=== PATIENT | female | born 1970 | race Caucasian/White ===

== ENCOUNTER 2017-05-01 12:06 | Emergency (ER) | payer MEDICAID, OTHER ==
[2017-05-01] MEDS ORDERED: NITROGLYCERIN 2% OINTMENT 1 GM PACKET TP ONE (12:43)
--- NOTE | 2017-05-01 12:43 | ER Document Report ---
ED Medical Screen (RME) - General Chief Complaint: Chest Pain Stated Complaint: ARM NUMBNESS WITH PAIN Time Seen by Provider: 05/01/17 12:38 Mode of Arrival: Wheelchair Information source: Patient TRAVEL OUTSIDE OF THE [place] IN LAST 30 DAYS: No - HPI Patient complains to provider of: CP Onset: This morning - Pt woke up earlier this am with SSCP (pressure) which radiated into her neck and down L arm. Has not taken ASA today - Related Data Allergies/Adverse Reactions: No Known Allergies Allergy (Unverified 05/01/17 12:16) Past Medical History - Social History Chew tobacco use (# tins/day): No Frequency of alcohol use: None Drug Abuse: None Renal/ Medical History: Denies: Hx Peritoneal Dialysis - Immunizations Hx Diphtheria, Pertussis, Tetanus Vaccination: Yes Physical Exam - Vital signs Vitals: Temp Pulse Resp BP Pulse Ox 98.4 F 120 H 24 H 154/94 H 99 05/01/17 12:14 05/01/17 12:14 05/01/17 12:14 05/01/17 12:14 05/01/17 12:14 Course - Vital Signs Vital signs: Temp Pulse Resp BP Pulse Ox 98.4 F 120 H 24 H 154/94 H 99 05/01/17 12:14 05/01/17 12:14 05/01/17 12:14 05/01/17 12:14 05/01/17 12:14
[2017-05-01 13:23] LABS: ABSOLUTE BASOPHILS # (AUTO) 0.1 10^3/uL (0.0-0.2); ABSOLUTE LYMPHOCYTES (AUTO) 1.5 10^3/uL (0.5-4.7); ABSOLUTE MONOCYTES (AUTO) 0.6 10^3/uL (0.1-1.4); ABSOLUTE NEUT (AUTO) 7.1 10^3/uL (1.7-8.2); BASOPHILS % (AUTO) 0.7 % (0-2); EOSINOPHILS % (AUTO) 0.3 % (0-6); HEMATOCRIT 44.6 % (36.0-47.0); HEMOGLOBIN 15.2 g/dL (12.0-15.5); MEAN CORPUSCULAR HEMOGLOBIN 31.2 pg (27.0-33.4); MEAN CORPUSCULAR HGB CONC 34.1 g/dL (32.0-36.0); MEAN CORPUSCULAR VOLUME 92 fl (80-97); MONOCYTES % (AUTO) 6.6 % (3-13); RED BLOOD COUNT 4.87 10^6/uL (3.72-5.28); RED CELL DISTRIBUTION WIDTH 12.8 % (11.5-14.0); SEGMENTED NEUTROPHILS % (AUTO) 76.4 % (42-78); WHITE BLOOD COUNT 9.3 10^3/uL (4.0-10.5)
--- NOTE | 2017-05-01 13:24 | RADIOLOGY REPORT (SQ) ---
EXAM DESCRIPTION: CHEST PA/LAT COMPLETED DATE/TIME: 05/01/2017 1:10 pm REASON FOR STUDY: CP COMPARISON: None. EXAM PARAMETERS: NUMBER OF VIEWS: two views TECHNIQUE: Digital Frontal and Lateral radiographic views of the chest acquired. RADIATION DOSE: NA LIMITATIONS: none FINDINGS: LUNGS AND PLEURA: No opacities, masses or pneumothorax. No pleural effusion. MEDIASTINUM AND HILAR STRUCTURES: No masses or contour abnormalities. HEART AND VASCULAR STRUCTURES: Heart normal size. No evidence for failure. BONES: No acute findings. HARDWARE: Clips right upper quadrant post cholecystectomy OTHER: No other significant finding. IMPRESSION: NO SIGNIFICANT RADIOGRAPHIC FINDING IN THE CHEST. TECHNICAL DOCUMENTATION: JOB ID: [id number] [employer]- All Rights Reserved
--- NOTE | 2017-05-01 13:28 | EKG REPORT ---
SEVERITY:- BORDERLINE ECG - SINUS TACHYCARDIA PROBABLE LEFT ATRIAL ABNORMALITY : Confirmed by: Maurizio Cabrera 01-May-2017 13:26:46
[2017-05-01 13:40] LABS: ALANINE AMINOTRANSFERASE 26 U/L (9-52); ALBUMIN 4.7 g/dL (3.5-5.0); ALKALINE PHOSPHATASE 69 U/L (38-126); ANION GAP 15 (5-19); ASPARTATE AMINO TRANSFERASE 22 U/L (14-36); BILIRUBIN,DIRECT 0.3 mg/dL (0.0-0.4); BILIRUBIN,TOTAL 0.6 mg/dL (0.2-1.3); BLOOD UREA NITROGEN 17 mg/dL (7-20); CARBON DIOXIDE 22 mmol/L (22-30); CHLORIDE 106 mmol/L (98-107); CREATINE KINASE 45 U/L (30-135); CREATININE RESULT 0.79 mg/dL (0.52-1.25); GLUCOSE 114 mg/dL (75-110); POTASSIUM 4.8 mmol/L (3.6-5.0); SODIUM 142.7 mmol/L (137-145); TOTAL PROTEIN 8.5 g/dL (6.3-8.2)
[2017-05-01] MEDS ORDERED: ASPIRIN 81 MG TABLET, CHEWABLE ONE (13:46)
[2017-05-01 13:55] LABS: CREATINE KINASE MB < 0.22 ng/mL (<4.55); TROPONIN I < 0.012 ng/mL
[2017-05-01] MEDS ORDERED: CLONAZEPAM 1 MG TABLET PO ONE (14:21)
--- NOTE | 2017-05-01 14:58 | ER Document Report ---
ED General - General Chief Complaint: Chest Pain Stated Complaint: ARM NUMBNESS WITH PAIN Time Seen by Provider: 05/01/17 12:38 Mode of Arrival: Wheelchair Information source: Patient, Relative Notes: 46-year-old female history of anxiety who has had multiple previous cardiac evaluations at outlying facilities per presents with complaints of palpitations. Patient notes pain radiates across her arms to her chest associated with shortness of breath. Patient does note that she ran out of her clonazepam and symptoms started since TRAVEL OUTSIDE OF THE [place] IN LAST 30 DAYS: No - HPI Onset: This morning Onset/Duration: Persistent Quality of pain: Achy Severity: Mild Pain Level: 1 Associated symptoms: Chest pain, Shortness of breath Exacerbated by: Denies Relieved by: Denies Similar symptoms previously: Yes Recently seen / treated by doctor: Yes - Related Data Allergies/Adverse Reactions: No Known Allergies Allergy (Unverified 05/01/17 12:16) Past Medical History - General Information source: Patient - Social History Smoking Status: Never Smoker Cigarette use (# per day): No Chew tobacco use (# tins/day): No Smoking Education Provided: No Frequency of alcohol use: None Drug Abuse: None Family History: Reviewed & Not Pertinent Patient has suicidal ideation: No Patient has homicidal ideation: No Renal/ Medical History: Denies: Hx Peritoneal Dialysis - Immunizations Hx Diphtheria, Pertussis, Tetanus Vaccination: Yes Review of Systems - Review of Systems Notes: REVIEW OF SYSTEMS: CONSTITUTIONAL : Denies fever, chills, or sweats. Denies recent illness. EENT: Denies eye, ear, throat, or mouth pain or symptoms. Denies nasal or sinus congestion or discharge. Denies throat, tongue, or mouth swelling or difficulty swallowing. CARDIOVASCULAR: Admits to chest pain GASTROINTESTINAL: Denies abdominal pain or distention. Denies nausea, vomiting , or diarrhea. Denies blood in vomitus, stools, or per rectum. Denies black, tarry stools. Denies constipation. GENITOURINARY: Denies difficulty urinating, painful urination, burning, frequency, blood in urine, or discharge. FEMALE GENITOURINARY: Denies vaginal bleeding, heavy or abnormal periods, irregular periods. Denies vaginal discharge or odor. MUSCULOSKELETAL: Denies back or neck pain or stiffness. Denies joint pain or swelling. SKIN: Denies rash, lesions or sores. HEMATOLOGIC : Denies easy bruising or bleeding. LYMPHATIC: Denies swollen, enlarged glands. NEUROLOGICAL: Denies confusion or altered mental status. Denies passing out or loss of consciousness. Denies dizziness or lightheadedness. Denies headache. Denies weakness or paralysis or loss of use of either side. Denies problems with gait or speech. Denies sensory loss, numbness, or tingling. Denies seizures. PSYCHIATRIC: Admits to panic attacks ALL OTHER SYSTEMS REVIEWED AND NEGATIVE. Dictation was performed using [employer] voice recognition software PHYSICAL EXAMINATION: GENERAL: Well-appearing, well-nourished and in no acute distress. HEAD: Atraumatic, normocephalic. EYES: Pupils equal round and reactive to light, extraocular movements intact, conjunctiva are normal. ENT: Nares patent, oropharynx clear without exudates. Moist mucous membranes. NECK: Normal range of motion, supple without lymphadenopathy LUNGS: Patient breathing 18 times a minute prior to my arrival breath sounds clear to auscultation bilaterally and equal. No wheezes rales or rhonchi. HEART: Regular rate and rhythm without murmurs patient's heart rate is in the low 90s prior to my arrival however when I walk in heart rate goes up to the 130s ABDOMEN: Soft, nontender, nondistended abdomen. No guarding, no rebound. No masses appreciated. Female : deferred Musculoskeletal: Normal range of motion, no pitting or edema. No cyanosis. NEUROLOGICAL: Cranial nerves grossly intact. Normal speech, normal gait. Normal sensory, motor exams PSYCH: Normal mood, normal affect. SKIN: Warm, Dry, normal turgor, no rashes or lesions noted. Physical Exam - Vital signs Vitals: Temp Pulse Resp BP Pulse Ox 98.4 F 120 H 24 H 154/94 H 99 05/01/17 12:14 05/01/17 12:14 05/01/17 12:14 05/01/17 12:14 05/01/17 12:14 Course - Re-evaluation Re-evalutation: 05/01/17 14:58 Patient has probable panic attack given extensive history lack of medication and current presentation, a CTA has been ordered nonetheless given that she was tachycardic and tachypneic on arrival, sats have been 100% 05/01/17 15:51 cta was negative, pt otherwise looks well, will dc home as anxiety, otherwise no life threatening issues noted After performing a Medical Screening Examination, I estimate there is LOW risk for RUPTURED ESOPHAGUS, PNEUMOTHORAX, PULMONARY EMBOLISM, ACUTE CORONARY SYNDROME, OR THORACIC AORTIC DISSECTION, thus I consider the discharge disposition reasonable. I have reevaluated this patient multiple times and no significant life threatening changes are noted. The patient and I have discussed the diagnosis and risks, and we agree with discharging home with close follow-up. We also discussed returning to the Emergency Department immediately if new or worsening symptoms occur. We have discussed the symptoms which are most concerning (e.g., bloody sputum, worsening pain or shortness of breath) that necessitate immediate return. - Vital Signs Vital signs: Temp Pulse Resp BP Pulse Ox 98.4 F 135 H 31 H 151/88 H 100 05/01/17 12:14 05/01/17 13:25 05/01/17 15:16 05/01/17 15:16 05/01/17 15:16 - Laboratory Result Diagrams: 05/01/17 12:50 05/01/17 12:50 Laboratory results interpreted by me: 05/01/17 12:50 Glucose 114 H Total Protein 8.5 H - Diagnostic Test Radiology reviewed: Image reviewed, Reports reviewed - EKG Interpretation by Ne EKG shows normal: Sinus rhythm, [place], Intervals, QRS Complexes Discharge - Discharge Clinical Impression: Anxiety, Tachycardia Chest pain Qualifiers: Chest pain type: unspecified Qualified Code(s): R07.9 - Chest pain, unspecified Condition: Stable Disposition: HOME, SELF-CARE Instructions: Chest Pain of Unclear Cause ([facility]) Prescriptions: Clonazepam [Klonopin] 1 mg PO Q6 #20 tablet
--- NOTE | 2017-05-01 15:48 | RADIOLOGY REPORT (SQ) ---
EXAM DESCRIPTION: CTA CHEST COMPLETED DATE/TIME: 05/01/2017 3:29 pm REASON FOR STUDY: chest pain COMPARISON: None. TECHNIQUE: CT scan of the chest performed using helical scanning technique with dynamic intravenous contrast injection. Images reviewed with lung, soft tissue and bone windows. Reconstructed coronal and sagittal MPR images reviewed. Additional 3 dimensional post-processing performed to develop Maximal Intensity Projection images (ME P). All images stored on PACS. All CT scanners at this facility use dose modulation, iterative reconstruction, and/or weight based d osing when appropriate to reduce radiation dose to as low as reasonably achievable (ALARA). [facility]: Dose Right [facility]: CareDose [facility]: Dose Right [facility]: Teradose 4D [facility]: [employer] CONTRAST TYPE AND DOSE: 100 mL Isovue 370- low osmolar. RENAL FUNCTION: None required. The patient is less than 50 years old. RADIATION DOSE: 44.11 mGy. LIMITATIONS: None. FINDINGS: LUNGS AND PLEURA: No masses, infiltrates, pneumothorax. No pleural effusions, calcificati ons. AORTA AND GREAT VESSELS: No aneurysm or dissection. HEART: No pericardial effusion. PULMONARY ARTERIES: No emboli visualized in the main pulmonary arteries or the segmental branches. HILAR AND MEDIASTINAL STRUCTURES: No identified masses or abnormal nodes. HARDWARE: None in the chest. UPPER ABDOMEN: Potential fullness in the right renal collecting system, incomplete evaluation. THYROID AND OTHER SOFT TISSUES: No masses. No adenopathy. BONES: No acute or significant finding. 3D MIPS: Confirm above findings. OTHER: No other significant finding. IMPRESSION: 1. Negative CTA chest. Clear lungs with normal vessels. 2. Incompletely evaluated fu llness in the right renal collecting system. If the patient has hematuria and concern for renal obst ruction, consider renal ultrasound. TECHNICAL DOCUMENTATION: JOB ID: [id number] Quality ID # [id number]: Final reports with documentation of one or more dose reduction techniques (e.g., Au tomated exposure control, adjustment of the mA and/or kV according to patient size, use of iterative reconstruction technique) 2010 [employer]- All Rights Reserved
[2017-05-01 16:03] VITALS: BP 122/83
== END 2017-05-01 16:15 | disposition home or self-care (01) ==
LOC: ER 12:06
DX: F41.9 Anxiety disorder, unspecified (principal); R00.0 Tachycardia, unspecified; R07.9 Chest pain, unspecified; R20.0 Anesthesia of skin
CPT/HCPCS: 93005; 99285; 36415; 82553; 82550; 85025; 80053; 84484; 71020; 71275; 93010; J3490 ×2

== ENCOUNTER 2017-06-21 19:28 | Emergency (ER) | payer MEDICAID, OTHER ==
[2017-06-21 20:12] LABS: ABSOLUTE BASOPHILS # (AUTO) 0.1 10^3/uL (0.0-0.2); ABSOLUTE EOSINOPHILS # (AUTO) 0.4 10^3/uL (0.0-0.6); ABSOLUTE MONOCYTES (AUTO) 0.8 10^3/uL (0.1-1.4); BASOPHILS % (AUTO) 0.6 % (0-2); HEMATOCRIT 31.1 % (36.0-47.0); HEMOGLOBIN 10.8 g/dL (12.0-15.5); HGB HCT DIFFERENCE 1.3; LYMPHOCYTES % (AUTO) 10.2 % (13-45); MEAN CORPUSCULAR HEMOGLOBIN 31.6 pg (27.0-33.4); MEAN CORPUSCULAR HGB CONC 34.8 g/dL (32.0-36.0); MEAN CORPUSCULAR VOLUME 91 fl (80-97); MONOCYTES % (AUTO) 7.6 % (3-13); RED BLOOD COUNT 3.42 10^6/uL (3.72-5.28); SEGMENTED NEUTROPHILS % (AUTO) 77.6 % (42-78); WHITE BLOOD COUNT 10.3 10^3/uL (4.0-10.5)
[2017-06-21 20:17] LABS: APPEARANCE,URINE CLEAR; BILIRUBIN,URINE NEGATIVE (NEGATIVE); GLUCOSE, URINE NEGATIVE (NEGATIVE); KETONES,URINE NEGATIVE (NEGATIVE); LEUKOCYTE ESTERASE,URINE NEGATIVE (NEGATIVE); NITRITE,URINE NEGATIVE (NEGATIVE); PROTEIN,URINE NEGATIVE (NEGATIVE)
--- NOTE | 2017-06-21 20:49 | ER Document Report ---
ED Medical Screen (RME) - General Chief Complaint: Post op problems Stated Complaint: POST OP COMPLICATIONS Time Seen by Provider: 06/21/17 19:49 Notes: Patient had a recent hysterectomy approximately 1 week ago. She states she has not had a bowel movement since being discharged from the hospital. She states she is having severe diffuse abdominal pain. He states she is unable to eat. She states that she is also had fevers at home. She states she called the hospital with a surgery performed in order to go to the closest emergency department. The surgery was not performed here. TRAVEL OUTSIDE OF THE [place] IN LAST 30 DAYS: No - Related Data Allergies/Adverse Reactions: No Known Allergies Allergy (Unverified 05/01/17 12:16) Past Medical History Renal/ Medical History: Denies: Hx Peritoneal Dialysis - Immunizations Hx Diphtheria, Pertussis, Tetanus Vaccination: Yes Physical Exam - Vital signs Vitals: Temp Pulse Resp BP Pulse Ox 98.7 F 97 16 115/63 96 06/21/17 19:34 06/21/17 19:34 06/21/17 19:34 06/21/17 19:34 06/21/17 19:34 Course - Vital Signs Vital signs: Temp Pulse Resp BP Pulse Ox 98.7 F 97 16 115/63 96 06/21/17 19:34 06/21/17 19:34 06/21/17 19:34 06/21/17 19:34 06/21/17 19:34 - Laboratory Result Diagrams: 06/21/17 19:55 06/21/17 19:55 Laboratory results interpreted by me: 06/21/17 06/21/17 19:55 19:55 RBC 3.42 L Hgb 10.8 L Hct 31.1 L Lymphocytes % 10.2 L Urine Blood MODERATE H Urine Urobilinogen 4.0 H
[2017-06-21 21:42] LABS: ALANINE AMINOTRANSFERASE 39 U/L (9-52); ALBUMIN 3.8 g/dL (3.5-5.0); ALKALINE PHOSPHATASE 65 U/L (38-126); ANION GAP 11 (5-19); ASPARTATE AMINO TRANSFERASE 27 U/L (14-36); BILIRUBIN,DIRECT 0.4 mg/dL (0.0-0.4); BILIRUBIN,TOTAL 1.1 mg/dL (0.2-1.3); BLOOD UREA NITROGEN 10 mg/dL (7-20); CALCIUM 9.2 mg/dL (8.4-10.2); CARBON DIOXIDE 26 mmol/L (22-30); CHLORIDE 102 mmol/L (98-107); GLUCOSE 104 mg/dL (75-110); POTASSIUM 4.4 mmol/L (3.6-5.0); SODIUM 138.7 mmol/L (137-145); TOTAL PROTEIN 6.8 g/dL (6.3-8.2)
--- NOTE | 2017-06-21 23:58 | RADIOLOGY REPORT (SQ) ---
EXAM DESCRIPTION: CT ABD/PELVIS WITH IV ONLY COMPLETED DATE/TIME: 06/21/2017 10:33 pm REASON FOR STUDY: post op HYSTERCTOMY. diffuse pain COMPARISON: None. TECHNIQUE: CT scan of the abdomen and pelvis performed using helical scanning technique with dynamic intravenous contrast injection. No oral contrast. Images reviewed with lung, soft tissue, and bone windows. Reconstructed coronal and sagittal MPR images reviewed. Delayed images for evaluation of the urinary system also acquired. All images stored on PACS. All CT scanners at this facility use dose modulation, iterative reconstruction, and/or weight based d osing when appropriate to reduce radiation dose to as low as reasonably achievable (ALARA). [facility]: Dose Right [facility]: CareDose [facility]: Dose Right [facility]: Teradose 4D [facility]: [employer] CONTRAST TYPE AND DOSE: contrast/concentration: Isovue 370.00 mg/ml; Total Contrast Delivered: 97.0 ml; Total Saline Delivered: 45.0 ml RENAL FUNCTION: Creatinine 0.78 RADIATION DOSE: Up-to-date CT equipment and radiation dose reduction techniques were employed. CTDIv ol: 16.6 - 16.6 mGy. DLP: 1818 mGy-cm.. LIMITATIONS: None. FINDINGS: LOWER CHEST: Tiny bilateral pleural effusions are identified with associated airspace cons olidation most consistent with atelectatic changes. LIVER: Normal size. No masses. No dilated ducts. SPLEEN: Normal size. No focal lesions. PANCREAS: No masses. No significant calcifications. No adjacent inflammation or peripancreatic fluid collections. Pancreatic duct not dilated. GALLBLADDER: Status post cholecystectomy ADRENAL GLANDS: No significant masses or asymmetry. RIGHT KIDNEY AND URETER: No solid masses. No significant calcifications. No hydronephrosis or hyd roureter. LEFT KIDNEY AND URETER: No solid masses. No significant calcifications. No hydronephrosis or hydr oureter. AORTA AND VESSELS: No aneurysm. No dissection. Renal arteries, SMA, celiac without stenosis. RETROPERITONEUM: No retroperitoneal adenopathy, hemorrhage or masses. BOWEL AND PERITONEAL CAVITY: No masses or inflammatory changes. No free fluid or peritoneal masses. APPENDIX: Status post appendectomy PELVIS: There are diffuse edematous or inflammatory changes in the pelvis. A cystic mass is identifi ed in the right pelvis measuring 3.9 cm in diameters. This may be ovarian in etiology. Small amount of air is identified in the bladder. No definite diverticula are identified in the sigmoid colon. The possibility of pelvic inflammatory disease should be considered as a possible etiology. Other et iologies cannot be completely excluded. The possibility of a fistulous track involving the bladder c annot be excluded. Clinical correlation is recommended. ABDOMINAL WALL: No masses. No hernias. BONES: No significant or acute findings. OTHER: No other significant finding. IMPRESSION: There are diffuse edematous or inflammatory changes in the pelvis as noted above. A cys tic mass is identified in the right pelvis measuring 3.9 cm in diameters which may be ovarian in etio logy. A small amount of air is identified in the bladder. Possibility of a fistulous track involvin g the bladder cannot be excluded. The possibility of pelvic inflammatory disease should be considere d as a possible etiology. Clinical correlation is recommended. Other findings as noted above TECHNICAL DOCUMENTATION: JOB ID: [id number] Quality ID # [id number]: Final reports with documentation of one or more dose reduction techniques (e.g., Au tomated exposure control, adjustment of the mA and/or kV according to patient size, use of iterative reconstruction technique) 2010 [employer]- All Rights Reserved
--- NOTE | 2017-06-21 23:58 | ER Document Report ---
ED General - General Chief Complaint: Post op problems Stated Complaint: POST OP COMPLICATIONS Time Seen by Provider: 06/21/17 19:49 Mode of Arrival: Ambulatory Information source: Patient Notes: 46-year-old female presents with complaints of constipation of 5 day duration post hysterectomy. Patient denies any fevers or chills denies any nausea or vomiting. Admits to abdominal cramping Patient also notes that she is very anxious and feels that her whole body is numb. TRAVEL OUTSIDE OF THE [place] IN LAST 30 DAYS: No - HPI Onset: Last week Onset/Duration: Persistent Quality of pain: Cramping Severity: Mild Pain Level: 1 Associated symptoms: Other Exacerbated by: Denies Relieved by: Denies Similar symptoms previously: Yes Recently seen / treated by doctor: Yes - Related Data Allergies/Adverse Reactions: No Known Allergies Allergy (Unverified 05/01/17 12:16) Past Medical History - Social History Smoking Status: Never Smoker Cigarette use (# per day): No Chew tobacco use (# tins/day): No Smoking Education Provided: No Frequency of alcohol use: None Drug Abuse: None Family History: Reviewed & Not Pertinent Renal/ Medical History: Denies: Hx Peritoneal Dialysis Past Surgical History: Reports: Hx Hysterectomy - Immunizations Hx Diphtheria, Pertussis, Tetanus Vaccination: Yes Review of Systems - Review of Systems Notes: REVIEW OF SYSTEMS: CONSTITUTIONAL : Denies fever, chills, or sweats. Denies recent illness. EENT: Denies eye, ear, throat, or mouth pain or symptoms. Denies nasal or sinus congestion or discharge. Denies throat, tongue, or mouth swelling or difficulty swallowing. CARDIOVASCULAR: Denies chest pain. Denies palpitations or racing or irregular heart beat. Denies ankle edema. RESPIRATORY: Denies cough, cold, or chest congestion. Denies shortness of breath, difficulty breathing, or wheezing. GASTROINTESTINAL: admits to constipation GENITOURINARY: Denies difficulty urinating, painful urination, burning, frequency, blood in urine, or discharge. FEMALE GENITOURINARY: Denies vaginal bleeding, heavy or abnormal periods, irregular periods. Denies vaginal discharge or odor. MUSCULOSKELETAL: Denies back or neck pain or stiffness. Denies joint pain or swelling. SKIN: Denies rash, lesions or sores. HEMATOLOGIC : Denies easy bruising or bleeding. LYMPHATIC: Denies swollen, enlarged glands. NEUROLOGICAL: Admits to generalized paresthesia PSYCHIATRIC: Admits to anxiety ALL OTHER SYSTEMS REVIEWED AND NEGATIVE. PHYSICAL EXAMINATION: GENERAL: Well-appearing, well-nourished and in no acute distress. HEAD: Atraumatic, normocephalic. EYES: Pupils equal round and reactive to light, extraocular movements intact, conjunctiva are normal. ENT: Nares patent, oropharynx clear without exudates. Moist mucous membranes. NECK: Normal range of motion, supple without lymphadenopathy LUNGS: Breath sounds clear to auscultation bilaterally and equal. No wheezes rales or rhonchi. HEART: Regular rate and rhythm without murmurs ABDOMEN: Soft, nontender, nondistended abdomen. No guarding, no rebound. No masses appreciated. Patient has 3 healing surgical incisions no secondary signs of infection Female : deferred Musculoskeletal: Normal range of motion, no pitting or edema. No cyanosis. NEUROLOGICAL: Cranial nerves grossly intact. Normal speech, normal gait. Normal sensory, motor exams PSYCH: Normal mood, normal affect. SKIN: Warm, Dry, normal turgor, no rashes or lesions noted. Dictation was performed using [employer] voice recognition software Physical Exam - Vital signs Vitals: Temp Pulse Resp BP Pulse Ox 98.7 F 97 16 115/63 96 06/21/17 19:34 06/21/17 19:34 06/21/17 19:34 06/21/17 19:34 06/21/17 19:34 Course - Re-evaluation Re-evalutation: 06/22/17 00:03 Patient main complaint is constipation and pain secondary to constipation. I have ordered for an enema. Patient is a refuses wishes to leave AGAINST MEDICAL ADVICE. I do not have results of the CT at this time. I will let them go as she is alert oriented and family members are in agreement with her leaving. I have instructed her to go to [facility] where she had her surgery if she has any fevers or any other complaints. She will be given GoLYTELY and magnesium citrate After performing a Medical Screening Examination, I spoke with the patient at length in regards to leaving the hospital against medical advice. I do not believe the patient should leave but the patient is alert oriented x4, understands the risks and benefits of staying and leaving including disability and . Pt understands that she can return at any time for further care and is more than welcome to do so. Pt verbalizes this understanding. 06/22/17 01:29 CT read was noted, I have very low suspicion that there is infective tract, patient is afebrile her main complaint is constipation and she left AGAINST MEDICAL ADVICE so she can go eat since she was hungry. Patient was instructed prior to her departure that she must follow-up with her surgeon tomorrow. Patient notes she has an appointment 2 weeks but I explained that this is too far out that I want her seen immediately as her symptoms may be secondary to a postsurgical complication - Vital Signs Vital signs: Temp Pulse Resp BP Pulse Ox 98.7 F 78 20 112/68 98 06/22/17 00:12 06/22/17 00:12 06/22/17 00:12 06/22/17 00:12 06/22/17 00:12 - Laboratory Result Diagrams: 06/21/17 19:55 06/21/17 21:14 Laboratory results interpreted by me: 06/21/17 06/21/17 19:55 19:55 RBC 3.42 L Hgb 10.8 L Hct 31.1 L Lymphocytes % 10.2 L Urine Blood MODERATE H Urine Urobilinogen 4.0 H - Diagnostic Test Radiology reviewed: Image reviewed, Reports reviewed - Postsurgical changes noted Discharge - Discharge Clinical Impression: Abdominal pain Qualifiers: Abdominal location: generalized Qualified Code(s): R10.84 - Generalized abdominal pain Constipation Qualifiers: Constipation type: unspecified constipation type Qualified Code(s): K59.00 - Constipation, unspecified Condition: Stable Disposition: AGAINST MEDICAL ADVICE Instructions: Abdominal Pain ([facility]) Additional Instructions: Please follow-up with your surgeon or return immediately if there are any other concerns at any time Prescriptions: Magnesium Citrate 295 ml PO ONCE PRN #1 solution PRN Reason: Peg 3350/Na Sulf,Bicarb,Cl/KCl [Golytely Solution 4000 ml] 4,000 ml PO DAILY #1 bottle
[2017-06-22 00:13] VITALS: BP 112/68
== END 2017-06-22 00:12 | disposition left against medical advice (07) ==
LOC: ER 19:28
DX: K59.00 Constipation, unspecified (principal); R10.84 Generalized abdominal pain; T81.9XXA Unspecified complication of procedure, initial encounter
CPT/HCPCS: 36415; 74177; 80053; 81001; 85025; 99284